=== PATIENT | male | born 1965 | race Caucasian/White ===

== ENCOUNTER 2017-05-01 18:11 | Emergency (ER) | payer BC ==
[2017-05-01] MEDS ORDERED: diphenhydrAMINE 50 MG/ML SDV IVPUSH ONE (18:49)
[2017-05-01] MEDS ORDERED: methylPREDNISolone Sodium Succinate 125 MG/2 ML SDV IVPUSH ONE (18:49)
[2017-05-01] MEDS ORDERED: Sodium Chloride 0.9% 1,000 ML IV ONE (18:49)
--- NOTE | 2017-05-01 19:08 | EDM.PDOC ---
ED HPI GENERAL MEDICAL PROBLEM - General Chief Complaint: Allergic Reaction Stated Complaint: PT HAS ALLERGIC REACTION Time Seen by Provider: 05/01/17 18:40 Source of Information: Reports: Patient History Limitations: Reports: No Limitations - History of Present Illness INITIAL COMMENTS - FREE TEXT/NARRATIVE: HISTORY AND PHYSICAL: History of present illness: Patient is a 52-year-old male who presents to the emergency room with complaints of an allergic reaction. He states that he was tearing down drywall on Sunday while he was in [place], and was wearing a facemask. On Sunday while flying back from [place] and had landed on a layover in June noticed some red [place] hive to the posterior neck and going across the face where his facemask was resting. Since that time he has had the itching, redness, contact swelling which has not subsided. He did take a dose of Benadryl last night around 2 AM. Denies any chest pain, shortness of breath, a pheresis, abdominal pain, nausea, vomiting or diarrhea. Denies any difficulty breathing. Patient has a history of diabetes which he takes metoprolol 1000 mg once daily. States he does not check his blood sugars as often as he should. He does not currently have a meter as the previous one broke. Review of systems: As per history of present illness and below otherwise all systems reviewed and negative. Past medical history: As per history of present illness and as reviewed below otherwise noncontributory. Surgical history: As per history of present illness and as reviewed below otherwise noncontributory. Social history: No reported history of drug or alcohol abuse. Family history: As per history of present illness and as reviewed below otherwise noncontributory. Physical exam: Gen.: Well-developed and well-nourished 52-year-old male. Able to speak in full sentences without shortness of breath. Alert and oriented. HEENT: Atraumatic, normocephalic, pupils reactive, negative for conjunctival pallor or scleral icterus, mucous membranes moist, throat clear, neck supple, nontender, trachea midline. Lungs: Clear to auscultation, breath sounds equal bilaterally, chest nontender. No difficulty of breathing noted. Easy and even. Heart: S1S2, regular, negative for clicks, rubs, or JVD. Abdomen: Soft, nondistended, nontender. Negative for masses or hepatosplenomegaly. Negative for costovertebral tenderness. Pelvis: Stable nontender. Genitourinary: Deferred. Rectal: Deferred. Skin: Patient has raised welts to the posterior neck that wrap around across the cheeks bilaterally, this correlates to contact dermatitis where the patient was wearing a facemask. No other rashes, welts or lesions noted to the body. Extremities: Atraumatic, negative for cords or calf pain. Neurovascular unremarkable. Neuro: Awake, alert, oriented. Cranial nerves II through XII unremarkable. Cerebellum unremarkable. Motor and sensory unremarkable throughout. Exam nonfocal. Diagnostics: Blood sugar check Therapeutics: Solu-Medrol, Benadryl, IV fluids Impression: Contact dermatitis Plan: 1. Please take the steroid as prescribed. Please get some [id number] Zantac and Benadryl. Take both of these medications as directed over the next 2- 3 days. 2. If you need a glucometer, you may want to follow-up with our clinical nurse educator, Corin Fitch. She is through [facility]. Phone number has been provided for you. 3. Follow-up with the primary caregiver in the next 1-2 days. Return to the ED as needed and as discussed Definitive disposition and diagnosis as appropriate pending reevaluation and review of above. Onset Date: 04/29/17 Duration: Day(s): Location: Reports: Face, Neck Headache Pain Score (Numeric/FACES): 7 - Related Data Allergies Allergy/AdvReac Type Severity Reaction Status Date / Time No Known Allergies Allergy Verified 05/01/17 18:34 Home Meds: Home Meds Aspirin [Halfprin] 81 mg PO DAILY 05/01/17 [History] Losartan [Cozaar] 25 mg PO DAILY 05/01/17 [History] metFORMIN [Glucophage XR] 500 mg PO DAILY 05/01/17 [History] Past Medical History Cardiovascular History: Reports: Hypertension, [place], Stents - Infectious Disease History Infectious Disease History: Reports: Chicken Pox - Past Surgical History Musculoskeletal Surgical History: Reports: Other (See Below) Other Musculoskeletal Surgeries/Procedures:: hand surgery Social & Family History - Family History Family Medical History: Noncontributory - Tobacco Use Smoking Status *Q: Never Smoker - Caffeine Use Caffeine Use: Reports: Coffee - Recreational Drug Use Recreational Drug Use: No ED ROS ALLERGIC REACTION - Review of Systems Review Of Systems: ROS reveals no pertinent complaints other than HPI. ED EXAM GENERAL NO PERIP PULSE - Physical Exam Exam: See Below (See dictation) Course - Vital Signs Last Recorded V/S: Last Vital Signs Temp 36.8 C 05/01/17 18:31 Pulse 87 05/01/17 18:31 Resp 20 05/01/17 18:31 BP 187/110 H 05/01/17 18:31 Pulse Ox - Orders/Labs/Meds Orders: Active Orders 24 hr Category Date Time Status Glucose [Blood Glucose Check, Bedside] [RC] ONETIME Care 05/01/17 19:04 Active Meds: Medications Discontinued Medications Generic Name Dose Route Start Last Admin Trade Name Jefq PRN Reason Stop Dose Admin Diphenhydramine HCl 25 mg 05/01/17 18:49 05/01/17 19:21 Benadryl IVPUSH 05/01/17 18:50 25 mg ONETIME ONE Administration Sodium Chloride 1,000 mls @ 999 mls/hr 05/01/17 18:49 05/01/17 19:21 Normal Saline IV 05/01/17 19:49 999 mls/hr STAT ONE Administration Methylprednisolone Sodium Succinate 125 mg 05/01/17 18:49 05/01/17 19:21 Solu-Medrol IVPUSH 05/01/17 18:50 125 mg ONETIME ONE Administration Departure - Departure Time of Disposition: 20:21 Disposition: Home, Self-Care 01 Clinical Impression: Contact dermatitis Qualifiers: Contact dermatitis type: irritant Contact dermatitis trigger: other chemical product Qualified Code(s): L24.5 - Irritant contact dermatitis due to other chemical products - Discharge Information Referrals: PCP,None [Primary Care Provider] - Additional Instructions: My general discharge The following information is given to patients seen in the emergency department who are being discharged to home. This information is to outline your options for follow-up care. We provide all patients seen in our emergency department with a follow-up referral. The need for follow-up, as well as the timing and circumstances, are variable depending upon the specifics of your emergency department visit. If you don't have a primary care physician on staff, we will provide you with a referral. We always advise you to contact your personal physician following an emergency department visit to inform them of the circumstance of the visit and for follow-up with them and/or the need for any referrals to a consulting specialist. The emergency department will also refer you to a specialist when appropriate. This referral assures that you have the opportunity for follow-up care with a specialist. All of these measure are taken in an effort to provide you with optimal care, which includes your follow-up. Under all circumstances we always encourage you to contact your private physician who remains a resource for coordinating your care. When calling for follow-up care, please make the office aware that this follow-up is from your recent emergency room visit. If for any reason you are refused follow-up, please contact the [facility] Emergency Department at and asked to speak to the emergency department charge nurse. [facility] [address] [place] [id number] 1. Please take the steroid as prescribed. Please get some [id number] Zantac and Benadryl. Take both of these medications as directed over the next 2- 3 days (These two medications get both the H-1 and H-2 allergen receptors). 2. If you need a glucometer, you may want to follow-up with our clinical nurse educator, Corin Fitch. She is through [facility]. Phone number has been provided for you. 3. Follow-up with the primary caregiver in the next 1-2 days. Return to the ED as needed and as discussed - My Orders Last 24 Hours: My Active Orders 05/01/17 19:04 Glucose [Blood Glucose Check, Bedside] [] ONETIME - Assessment/Plan Last 24 Hours: My Active Orders 05/01/17 19:04 Glucose [Blood Glucose Check, Bedside] [] ONETIME
== END 2017-05-01 20:40 | disposition home or self-care (01) ==
LOC: MW.ED 18:11
DX: L24.5 Irritant contact dermatitis due to other chemical products (principal); I10 Essential (primary) hypertension; E11.9 Type 2 diabetes mellitus without complications; Z98.890 Other specified postprocedural states; Z79.82 Long term (current) use of aspirin; Z79.84 Long term (current) use of oral hypoglycemic drugs; Z79.899 Other long term (current) drug therapy
CPT/HCPCS: 96361; 96374; 96375; 99282; J1200; J2930; J7040